=== PATIENT | male | born 1970 | race Caucasian/White ===

== ENCOUNTER 2018-08-29 08:00 | Outpatient (CLI) | payer OTHER ==
[2018-08-29 13:59] LABS: BASOPHILS # (AUTO) 0.2 10^3/uL (0.0-0.1); BASOPHILS % (AUTO) 1.4 %; EOSINOPHILS # (AUTO) 0.4 10^3/uL (0.0-0.7); EOSINOPHILS % (AUTO) 3.9 %; HGB - HEMOGLOBIN 19.6 g/dL (14.0-18.0); LYMPHOCYTES % (AUTO) 19.7 %; MEAN CORPUSCULAR HEMOGLOBIN 35.9 pg (27.0-31.0); MEAN CORPUSCULAR HGB CONC 35.2 g/dL (32.0-36.0); MEAN CORPUSCULAR VOLUME 101.9 fL (80.0-94.0); MEAN PLATELET VOLUME 10.5 fL (7.4-11.4); MONOCYTES # (AUTO) 0.6 10^3/uL (0.0-1.0); MONOCYTES % (AUTO) 5.9 %; NEUTROPHILS # (AUTO) 7.2 10^3/uL (1.5-6.6); NEUTROPHILS % (AUTO) 69.1 %; PLT - PLATELET COUNT 189 10^3/uL (130-450); RED BLOOD COUNT 5.47 10^6/uL (4.70-6.10); WHITE BLOOD COUNT 10.4 x10^3/uL (4.8-10.8)
[2018-08-29 16:10] LABS: PLATELET ESTIMATE, MANUAL NORMAL (130-450,000) (NORMAL); PLATELET MORPHOLOGY NORMAL APPEARANCE (NORMAL); RBC MORPHOLOGY (MULTIPLE) 1+ MACROCYTOSIS (NORMAL)
[2018-08-29 16:27] LABS: ALBUMIN 4.6 g/dL (3.2-5.5); ALKALINE PHOSPHATASE 85 IU/L (42-121); ALT ALANINE AMINOTRANSFERASE 32 IU/L (10-60); AST ASPARTATE AMINOTRANSFERASE 41 IU/L (10-42); BILIRUBIN,TOTAL 0.7 mg/dL (0.2-1.0); BUN - BLOOD UREA NITROGEN 14 mg/dL (6-20); CALCIUM 8.9 mg/dL (8.5-10.3); CARBON DIOXIDE - CO2 27 mmol/L (21-32); CHLORIDE 102 mmol/L (101-111); CHOL/HDL RATIO 7.9 (<5.0); CHOLESTEROL 197 mg/dL; GFR - MDRD 79 (>89); GLUCOSE 116 mg/dL (70-100); HDL CHOLESTEROL 25 mg/dL; SODIUM 137 mmol/L (135-145); TOTAL PROTEIN 6.9 g/dL (6.7-8.2)
[2018-08-29 17:00] LABS: LDL CHOLESTEROL,DIRECT 75 mg/dL
== END 2018-08-29 23:59 | disposition home or self-care (01) ==
LOC: LAB.WCP 08:00
PROVIDERS: ATTEND Family Medicine
DX: E78.1 Pure hyperglyceridemia (principal); E88.81 Metabolic syndrome and other insulin resistance; R03.0 Elevated blood-pressure reading, without diagnosis of hypertension; Z12.5 Encounter for screening for malignant neoplasm of prostate
CPT/HCPCS: 36415; 80053; 80061; 83721; 84153; 84443; 85025

== ENCOUNTER 2018-09-27 15:25 | Outpatient (CLI) | payer OTHER | END 2018-09-27 15:26 | disposition home or self-care (01) | LOC: SC 15:25 | PROVIDERS: ATTEND Nurse Practitioner Family | DX: G47.33 Obstructive sleep apnea (adult) (pediatric) (principal) | CPT/HCPCS: 99212; 99214 ==

== ENCOUNTER 2019-03-22 11:22 | Outpatient (CLI) | payer OTHER ==
[2019-03-22 12:23] VITALS: BP 120/80
--- NOTE | 2019-03-22 12:23 | SLEEP CARE CONSULTATION ---
Information from patient questionnaire entered by Jess Randolhp. I have reviewed and concur with the information entered by Jess Randolph. This document represents the service I personally performed and the decisions made by me, Lexie Kee, RN, MSN, TECHNICAL CLERK. History of Present Illness Previous diagnosis: Mild, Obstructive Sleep Apnea-Hypopnea Syndrome AHI: 6.5 Reason for CPAP/BiPAP follow up: first compliance after device update Equipment type: CPAP Equipment obtained from: [employer] Mask style: Nasal (Wisp) Mask brand: Respironics Backup mask available: Yes Last cushion change: 2 weeks ago CPAP Compliance Data - Data Reviewed with Patient Average duration of nightly device use: 6.1 Compliance rate %: 93.3 (met compliance 93.3 between -11/08/18) Current pressure setting (cmH2O): 5 Humidity settin Heated hose settin Average residual AHI: 2.1 Subjective Patient concerns: reports: mask leak noise (occasionally), nasal congestion (increased after doing paper work). denies: aerophagia, mask discomfort, air blowing in eyes, condensation in mask/hose, dry mouth, nose, throat, epistaxis Observed to snore while using device: No Current pressure setting perceived as: too low (seems to low at times.) On therapy, patient: reports: sleeping better, awakening more refreshed, being more awake and alert during the day, more rested overall. denies: drowsiness while driving Initial [place] Sleepiness Scale score: 8 Current [place] Sleepiness Scale score: 3 Allergies and Home Medications Known drug allergies: Yes (pencillin) Home medication list reviewed: Yes Allergy and home medication list: Medication Name (generic/name brand) Strength & Dosage Epipen 2-Jan 0.3mg/0.3ml Inj. Solution Use as needed per electric serviceman Fenofibrate 140mg tab one daily at bedtime Zyrtec (Cetirizine HCL) 10mg tab one daily Allergy List Penicillin V Potassium Review of Systems Review of systems same as previous: Yes Physical Exam Blood Pressure: 120/80 Cuff size: long Heart Rate: 84 O2 Saturation: 98 Height: 5 ft 8 in Weight: 204 lb 9.6 oz Body Mass Index: 31.1 BMI Classification: Obesity Class 1 Impression and Plan 1. Obstructive Sleep Apnea-Hypopnea Syndrome, mild, with good treatment compliance and good apnea control. On CPAP therapy, the patient has better sleep quality and is more rested overall. For nasal congestion, he can increase the humidity. In addition, I gave him a sample of saline nasal spray to use prior to CPAP to clear nose of dried secretions and wash off allergens. For the intermittent air hunger, I will increase his CPAP pressure to 6cmH20. He is to contact me if pressure change insufficient or uncomfortable. He would also prefer the auto on feature on and ordered for ease of transition to therapy. I also advised him to strive for more sleep. I explained how most people require 7-9 hours for optimal mental and physical function. Patient's apnea severity and rationale for treatment to reduce apnea, improve sleep quality and reduce cardiovascular and cerebrovascular events was reviewed. * * Change CPAP pressure to 6 cmH2O * Increase humidity * Try saline nasal spray * add auto on * Notify me if snoring with mask or feeling that the pressure is too much or too little * Attempt to lose weight * Strive for a minimum 7 hours of sleep. * Return for follow up in 1 year , or sooner if concerns arise I spent 100% of this 30 minute visit face to face with the patient with greater than 50% of this was spent time counseling the patient and coordination of care.
== END 2019-03-22 11:23 | disposition home or self-care (01) ==
LOC: SC 11:22
PROVIDERS: ATTEND Nurse Practitioner Family
DX: G47.33 Obstructive sleep apnea (adult) (pediatric) (principal); E66.9 Obesity, unspecified; Z68.31 Body mass index [BMI] 31.0-31.9, adult
CPT/HCPCS: 99212; 99214

== ENCOUNTER 2020-05-21 15:32 | Outpatient (CLI) | payer OTHER ==
--- NOTE | 2020-05-21 15:58 | SLEEP CARE CONSULTATION ---
Information from patient questionnaire entered by Gissel Pedro. I have reviewed and concur with the information entered by Gissel Pedro. This document represents the service I personally performed and the decisions made by , Brittany Gotti ARNP. History of Present Illness Service Date and Time: 05/21/2020 1532 Previous diagnosis: Mild, Obstructive Sleep Apnea-Hypopnea Syndrome AHI: 6.5 Reason for follow up: annual (last seen 03/2019) Equipment type: CPAP Equipment obtained from: [employer] (getting supplies as needed) Mask style: Nasal (Wisp) Backup mask available: Yes (old mask) Last cushion change: 5 days Year and Where: 2012 [facility] Type of Sleep Study: Polysomnography HPI additional information: MARLON HOFFMAN was diagnosed to have mild, AHI 6.5, obstructive sleep apnea- hypopnea syndrome and returned today for CPAP therapy annual follow-up. CPAP Compliance Data - Data Reviewed with Patient Average duration of nightly device use: 7 h 13 min Compliance rate %: 97.8 Current pressure setting (cmH2O): 6 Average residual AHI: 2.2 Average large leak: 0 sec Subjective Missed days of use due to: reports: travel Patient concerns: reports: nasal congestion (not while using machine this time of year), dry mouth, nose, throat. denies: aerophagia, mask discomfort, air blowing in eyes, mask leak noise, condensation in mask/hose, epistaxis, other Observed to snore while using device: No Current pressure setting perceived as: comfortable On therapy, patient: reports: sleeping better, awakening more refreshed, being more awake and alert during the day, more rested overall. denies: drowsiness while driving Initial [place] Sleepiness Scale score: 8 (in 2013) Current [place] Sleepiness Scale score: 1 Allergies and Home Medications Drug allergies reviewed: Yes (penicillin) Home medication list reviewed: Yes (no changes) Review of Systems Review of systems same as previous: No (inguinal hernia repair surgery) Physical Exam Heart Rate: 92 O2 Saturation: 97 Height: 5 ft 8 in Weight: 210 lb Body Mass Index: 31.9 BMI Classification: Obese Impression and Plan 1. Obstructive Sleep Apnea-Hypopnea Syndrome, mild, with good treatment compliance and good apnea control. On CPAP therapy, the patient has better sleep quality and is more rested overall. He has had some mouth dryness lately. Oral dryness can be reduced by adjusting humidity setting higher or heated hose lower or by adjusting both settings. He is otherwise doing well with no complaints. I encouraged him to try to lose weight. Patient's apnea severity and rationale for treatment to reduce apnea, improve sleep quality and reduce cardiovascular and cerebrovascular events was reviewed. * Continue auto CPAP pressure at 6 cmH2O * Notify me if snoring with mask or feeling that the pressure is too much or too little * Attempt to lose weight * Call this office if any problems using CPAP * Return for follow up in 1 year, or sooner if concerns arise Counseling Topics: Spare mask, Weight loss health impact Visit Type: In Office Time Spent with Patient (minutes): 15 Provider Statement: I spent 100% of the Face to Face Visit with the patient with greater than 50% spent counseling the patient and coordination of care.
== END 2020-05-21 15:33 | disposition home or self-care (01) ==
LOC: SC 15:32
PROVIDERS: ATTEND Nurse Practitioner Family
DX: G47.33 Obstructive sleep apnea (adult) (pediatric) (principal); E66.9 Obesity, unspecified; Z68.31 Body mass index [BMI] 31.0-31.9, adult
CPT/HCPCS: 99212; 99213

== ENCOUNTER 2021-03-27 14:01 | Outpatient (CLI) | payer OTHER ==
--- NOTE | 2021-03-27 16:05 | XRAY Report ---
PROCEDURE: Foot 2 View RT INDICATIONS: JOINT PAIN RIGHT FOOT TECHNIQUE: 2 views of the foot were acquired. COMPARISON: None. FINDINGS: Bones: No fractures or dislocations. Mild osteoarthritic changes throughout forefoot joints are seen more prominent at first MTP joint. No suspicious bony lesions. Soft tissues: No tibiotalar joint effusion. Achilles tendon appears normal. IMPRESSION: Mild forefoot joint osteoarthritis more prominent in great toe as above. No fracture or dislocation. No radiographic evidence of metatarsal stress fracture. Reviewed by: Romulo Meza MD on 03/27/2021 4:04 PM PDT Approved by: Romulo Meza MD on 03/27/2021 4:04 PM PDT Station ID: [id number]
--- NOTE | 2021-03-27 17:21 | XRAY Report ---
PROCEDURE: Hand 2 View RT INDICATIONS: PAIN IN RIGHT FINGER TECHNIQUE: 2 views of the hand acquired. COMPARISON: None. FINDINGS: Bones: No acute fractures or dislocations. No suspicious bony lesions. Soft tissues: No suspicious soft tissue calcifications. Mild nonspecific soft tissue prominence of the dorsal aspect of the fourth finger. IMPRESSION: No acute osseous abnormality. If there is clinical concern or persistent symptoms, additional imaging such as repeat radiographs or advanced imaging (e.g. CT, MRI) may be helpful for further evaluation. Reviewed by: Armen Gonzalez MD on 03/27/2021 5:20 PM PDT Approved by: Armen Gonzalez MD on 03/27/2021 5:20 PM PDT Station ID: [id number]
== END 2021-03-27 14:02 | disposition home or self-care (01) ==
LOC: DI.N 14:01
PROVIDERS: ATTEND Nurse Practitioner
DX: M79.644 Pain in right finger(s) (principal); M19.071 Primary osteoarthritis, right ankle and foot

== ENCOUNTER 2023-01-13 15:00 | Outpatient (CLI) | payer OTHER ==
--- NOTE | 2023-01-14 09:17 | Ultrasound Report ---
PROCEDURE: Abdomen Limited INDICATIONS: ABD HERNIA TECHNIQUE: Real-time focused scanning was performed of the abdomen, with image documentation. COMPARISONS: None. FINDINGS: Ultrasound was performed in the area of interest. There is a small to moderate sized umbili hermes hernia. The hernia defect measures 1.9 cm. No peristalsing bowel loops within the hernia sac. The hernia is not reducible. IMPRESSION: 1. Probably fat-containing umbilical hernia which is nonreducible. Consider CT for further evaluation . Reviewed by: Lexy Kim MD on 01/14/2023 9:15 AM PDT Approved by: Lexy Kim MD on 01/14/2023 9:15 AM PDT Station ID: [id number]
== END 2023-01-13 15:01 | disposition home or self-care (01) ==
LOC: DI 15:00
PROVIDERS: ATTEND Nurse Practitioner
DX: K42.9 Umbilical hernia without obstruction or gangrene (principal)

== ENCOUNTER 2023-07-12 16:01 | Outpatient (CLI) | payer OTHER ==
[2023-07-12 16:26] LABS: BASOPHILS # (AUTO) 0.1 10^3/uL (0.0-0.1); BASOPHILS % (AUTO) 1.6 %; EOSINOPHILS # (AUTO) 0.3 10^3/uL (0.0-0.7); EOSINOPHILS % (AUTO) 4.3 %; HGB - HEMOGLOBIN 12.9 g/dL (14.0-18.0); LYMPHOCYTES # (AUTO) 2.3 10^3/uL (1.5-3.5); LYMPHOCYTES % (AUTO) 32.3 %; MEAN CORPUSCULAR HEMOGLOBIN 27.8 pg (27.0-31.0); MEAN CORPUSCULAR HGB CONC 32.3 g/dL (32.0-36.0); MEAN CORPUSCULAR VOLUME 86.2 fL (80.0-94.0); MEAN PLATELET VOLUME 10.7 fL (7.4-11.4); MONOCYTES # (AUTO) 0.4 10^3/uL (0.0-1.0); MONOCYTES % (AUTO) 6.3 %; NEUTROPHILS # (AUTO) 3.9 10^3/uL (1.5-6.6); NEUTROPHILS % (AUTO) 55.2 %; PLT - PLATELET COUNT 237 10^3/uL (130-450); RED BLOOD COUNT 4.64 10^6/uL (4.70-6.10); RED CELL DISTRIBUTION WIDTH 15.8 % (12.0-15.0)
== END 2023-07-12 16:02 | disposition home or self-care (01) ==
LOC: LAB 16:01
PROVIDERS: ATTEND Internal Medicine Hematology & Oncology
DX: D45 Polycythemia vera (principal)
CPT/HCPCS: 36415; 85025

== ENCOUNTER 2023-12-30 08:52 | Outpatient (CLI) | payer OTHER ==
[2023-12-30 12:23] LABS: BASOPHILS # (AUTO) 0.1 10^3/uL (0.0-0.1); BASOPHILS % (AUTO) 1.5 %; EOSINOPHILS # (AUTO) 0.3 10^3/uL (0.0-0.7); EOSINOPHILS % (AUTO) 4.6 %; HCT - HEMATOCRIT 46.4 % (42.0-52.0); HGB - HEMOGLOBIN 14.9 g/dL (14.0-18.0); LYMPHOCYTES # (AUTO) 2.2 10^3/uL (1.5-3.5); LYMPHOCYTES % (AUTO) 33.8 %; MEAN CORPUSCULAR HEMOGLOBIN 28.6 pg (27.0-31.0); MEAN CORPUSCULAR HGB CONC 32.1 g/dL (32.0-36.0); MEAN CORPUSCULAR VOLUME 89.1 fL (80.0-94.0); MEAN PLATELET VOLUME 11.6 fL (7.4-11.4); MONOCYTES # (AUTO) 0.4 10^3/uL (0.0-1.0); MONOCYTES % (AUTO) 6.5 %; NEUTROPHILS # (AUTO) 3.5 10^3/uL (1.5-6.6); NEUTROPHILS % (AUTO) 53.3 %; PLT - PLATELET COUNT 224 10^3/uL (130-450); RED BLOOD COUNT 5.21 10^6/uL (4.70-6.10); RED CELL DISTRIBUTION WIDTH 14.6 % (12.0-15.0); WHITE BLOOD COUNT 6.6 x10^3/uL (4.8-10.8)
[2023-12-30 13:02] LABS: ALBUMIN 4.6 g/dL (3.2-5.5); ALBUMIN/GLOBULIN RATIO 1.8 (1.0-2.2); ALKALINE PHOSPHATASE 78 IU/L (42-121); ALT ALANINE AMINOTRANSFERASE 22 IU/L (10-60); AST ASPARTATE AMINOTRANSFERASE 22 IU/L (10-42); BILIRUBIN,TOTAL 0.4 mg/dL (0.2-1.0); BUN - BLOOD UREA NITROGEN 10 mg/dL (6-20); CALCIUM 9.6 mg/dL (8.5-10.3); CARBON DIOXIDE - CO2 27 mmol/L (21-32); CHLORIDE 99 mmol/L (101-111); CHOL/HDL RATIO 8.7 (<5.0); CHOLESTEROL 217 mg/dL; GFR - MDRD 78 (>89); GLUCOSE 203 mg/dL (74-104); HDL CHOLESTEROL 25 mg/dL; POTASSIUM 4.4 mmol/L (3.5-4.5); SODIUM 134 mmol/L (135-145); TOTAL PROTEIN 7.1 g/dL (6.4-8.9); TRIGLYCERIDES 831 mg/dL
[2023-12-30 13:07] LABS: FERRITIN 19.1 ng/mL (23.9-336.2)
[2023-12-30 13:09] LABS: ESTIMATED AVERAGE GLUCOSE 180 mg/dL (70-100); HEMOGLOBIN A1c% 7.9 % (4.27-6.07)
[2023-12-30 13:31] LABS: THYROID STIMULATING HORMONE 3.79 uIU/mL (0.34-5.60)
== END 2023-12-30 08:53 | disposition home or self-care (01) ==
LOC: LAB.N 08:52
PROVIDERS: ATTEND Nurse Practitioner
DX: D75.1 Secondary polycythemia (principal); Z51.81 Encounter for therapeutic drug level monitoring; E78.1 Pure hyperglyceridemia; R73.03 Prediabetes; Z12.5 Encounter for screening for malignant neoplasm of prostate; R53.83 Other fatigue; M10.9 Gout, unspecified
CPT/HCPCS: 36415; 80053; 80061; 82728; 83036; 83721; 84153; 84443; 84550; 85025